=== PATIENT | male | born 1960 | race Caucasian/White ===

== ENCOUNTER 2018-12-09 18:54 | Emergency (ER) | payer MEDICAID, MEDICARE, SELFPAY ==
[~2018-12-09] VITALS: Ht 180.3 cm; Wt 84.0 kg
--- NOTE | 2018-12-09 19:02 | NUR ---
PT REPORTS THAT HE IS ALSO HAVING DIARRHEA ON WAY TO ROOM Addendum: 12/09/18 at 2113 by [email or web address] Amendment undone in EDM - 12/09/18 at 2115 by RFRUHLING medicated per emar for continued nausea at 3/10 ivf infusing vitals stable on nibp/pox updated on estimated on poc
[2018-12-09] MEDS ORDERED: ONDANSETRON ODT 8 MG PO ONE (19:30)
[2018-12-09 19:51] LABS: BASOPHILS # (AUTO) 0.04 x10^3/uL (0-0.1); BASOPHILS % (AUTO) 0 % (0-1); EOSINOPHILS # (AUTO) 0.27 x10^3/uL (0-0.4); EOSINOPHILS % (AUTO) 3 % (1-7); LYMPHOCYTES % (AUTO) 29 % (22-44); MD NO; MEAN CORPUSCULAR HEMOGLOBIN 31.5 pg (27.5-34.5); MEAN CORPUSCULAR HGB CONC 33.6 g/dL (33.2-36.2); MEAN CORPUSCULAR VOLUME 93.7 fL (81-97); MEAN PLATELET VOLUME 8.8 fL (7.4-10.4); MONOCYTES % (AUTO) 6 % (2-9); NEUTROPHILS # (AUTO) 4.96 x10^3/uL (1.8-6.8); NEUTROPHILS % (AUTO) 62 % (42-75); PLATELET COUNT 187 x10^3/uL (130-400); RED BLOOD COUNT 4.53 x10^6/uL (4.38-5.82); RED CELL DISTRIBUTION WIDTH 13.9 % (9.4-14.8)
[2018-12-09] MEDS ORDERED: SODIUM CHLORIDE 0.9% 1,000ML IVBOLUS ONE (20:00)
[2018-12-09] MEDS ORDERED: SODIUM CHLORIDE FLUSH 10ML SYR IVF ONE (20:00)
--- NOTE | 2018-12-09 20:00 | NUR ---
present pov for n/v/d x 1 day after eating suspect meal appears well, vss provider to bedside updated on poc
[2018-12-09 20:04] LABS: ALANINE AMINOTRANSFERASE 31 U/L (12-78); ALBUMIN 3.4 g/dL (3.4-5.0); ANION GAP 8 mmol/L (5-15); CALCIUM 8.5 mg/dL (8.5-10.1); CHLORIDE 104 mmol/L (98-107); CREATININE 0.91 mg/dL (0.7-1.3)
[2018-12-09 20:06] LABS: ALKALINE PHOSPHATASE 85 U/L (45-117); BILIRUBIN,TOTAL 0.5 mg/dL (0.2-1.0); TOTAL PROTEIN 7.1 g/dL (6.4-8.2)
[2018-12-09 20:32] LABS: CULTURE INDICATED? YES; MICROSCOPIC INDICATED
[2018-12-09 20:39] LABS: ACETONE, SERUM Small (20mg/dL) mg/dL (Negative)
--- NOTE | 2018-12-09 20:58 | NUR ---
SOFT STOOL SAMPLE COLLECTED PATIENT REPORTS NAUSE NOW IMPROVED TO 09/19-ASKING FOR WATER IVF INFUSING UPDATED ON POC
[2018-12-09] MEDS ORDERED: PROMETHAZINE 25 MG/ML, 1ML IM ONE (21:00)
[2018-12-09] MEDS ORDERED: PROMETHAZINE 25 MG/ML, 1ML ONE (21:03)
--- NOTE | 2018-12-09 21:15 | NUR ---
medicated per emar for continued nausea at 09/19 ivf infusing vitals stable on nibp/pox updated on estimated on po
[2018-12-09 21:44] VITALS: BP 115/88
[2018-12-09 22:04] LABS: CLOSTRIDIUM DIFFICILE ANTIGEN NEGATIVE; CLOSTRIDIUM DIFFICILE TOXIN NEGATIVE (Negative)
== END 2018-12-09 21:46 | disposition home or self-care (01) ==
LOC: ED 20:44
DX: N39.0 Urinary tract infection, site not specified (principal); E66.9 Obesity, unspecified; I10 Essential (primary) hypertension; E11.9 Type 2 diabetes mellitus without complications; F17.210 Nicotine dependence, cigarettes, uncomplicated; Z68.25 Body mass index [BMI] 25.0-25.9, adult; Z72.9 Problem related to lifestyle, unspecified; Z75.9 Unspecified problem related to medical facilities and other health care; Z91.14 Patient's other noncompliance with medication regimen; Z90.89 Acquired absence of other organs
CPT/HCPCS: 36415; 80053; 81001; 82010; 83690; 85025; 87046; 87086; 87324; 87427; 89055; 93005; 96360; 96372; 99284; J2550; J7030; Q0162

== ENCOUNTER 2019-01-04 21:18 | Emergency (ER) | payer SELFPAY ==
[~2019-01-04] VITALS: Ht 180.3 cm; Wt 84.4 kg
[2019-01-04 22:49] LABS: BASOPHILS # (AUTO) 0.06 x10^3/uL (0-0.1); BASOPHILS % (AUTO) 1 % (0-1); EOSINOPHILS # (AUTO) 0.38 x10^3/uL (0-0.4); EOSINOPHILS % (AUTO) 5 % (1-7); LYMPHOCYTES % (AUTO) 38 % (22-44); MD NO; MEAN CORPUSCULAR HEMOGLOBIN 30.6 pg (27.5-34.5); MEAN CORPUSCULAR HGB CONC 32.9 g/dL (33.2-36.2); MEAN PLATELET VOLUME 8.7 fL (7.4-10.4); MONOCYTES # (AUTO) 0.79 x10^3/uL (0.2-0.8); MONOCYTES % (AUTO) 10 % (2-9); NEUTROPHILS % (AUTO) 46 % (42-75); PLATELET COUNT 191 x10^3/uL (130-400); RED BLOOD COUNT 4.59 x10^6/uL (4.38-5.82); RED CELL DISTRIBUTION WIDTH 13.2 % (9.4-14.8)
[2019-01-04 22:58] LABS: ALANINE AMINOTRANSFERASE 22 U/L (12-78); ALBUMIN 3.4 g/dL (3.4-5.0); ANION GAP 4 mmol/L (5-15); CALCIUM 8.9 mg/dL (8.5-10.1); CHLORIDE 104 mmol/L (98-107); CREATININE 1.13 mg/dL (0.7-1.3)
[2019-01-04 23:00] LABS: ALKALINE PHOSPHATASE 87 U/L (45-117); BILIRUBIN,TOTAL 0.5 mg/dL (0.2-1.0)
[2019-01-05 00:02] VITALS: BP 128/74
== END 2019-01-05 00:06 | disposition home or self-care (01) ==
LOC: ED 23:45
DX: R19.7 Diarrhea, unspecified (principal); E11.65 Type 2 diabetes mellitus with hyperglycemia; R11.2 Nausea with vomiting, unspecified; I10 Essential (primary) hypertension; F17.210 Nicotine dependence, cigarettes, uncomplicated
CPT/HCPCS: 36415; 80053; 83690; 85025; 93005; 99284